=== PATIENT | female | born 1940 | race African-American/Black ===

== ENCOUNTER 2017-04-26 12:07 | Emergency (ER) | payer MEDICARE, MEDICAID ==
[~2017-04-26] VITALS: Ht 165.1 cm; Wt 54.4 kg
[2017-04-26 12:23] VITALS: BP 123/74
[2017-04-26] MEDS ORDERED: TEMAZEPAM30 MG ORAL (12:26)
[2017-04-26] MEDS ORDERED: LORAZEPAM0.5 MG ORAL (12:26)
[2017-04-26] MEDS ORDERED: ENTOCORT EC3 MG PO (12:27)
[2017-04-26] MEDS ORDERED: Meclizine 25mg tab ORAL ONE (13:00)
--- NOTE | 2017-04-26 13:04 | Emergency Room Report ---
History of Present Illness General Chief Complaint: Dizziness Source: Patient Present Illness HPI 76-year-old female history of ? Chronic glaucoma, hypertension, chronic insomnia, presenting with one week of dizziness. Patient states lightheadedness every time she walks. Also complains of mild headache. Patient does state that at times room is spinning, and when it happens it is constant for more than 2 hours. Patient states that this has never happened in the past. Denies any trauma. Denies any blurry vision but states that she has had weeks of pressure behind her eyes, saw insole coverer, told her that she needs surgery however she has been putting it off. Son states that patient has chronic insomnia, is taking benzos however not working, the patient has not been able to sleep well for the last 3 days Allergies: Coded Allergies: IBUPROFEN (Verified Allergy, Unknown, 04/26/17) MORPHINE (Verified Allergy, Unknown, 04/26/17) Uncoded Allergies: PENICILLIN (Allergy, Unknown, 04/26/17) Patient History Past Medical History: see triage record Past Surgical History: none Pertinent Family History: none Reviewed Nursing Documentation: PMH: Agreed, PSxH: Agreed Nursing Documentation-PMH Past Medical History: No History, Except For Hx Cardiac Problems: No Hx Hypertension: No Hx Pacemaker: No Hx Asthma: No Hx COPD: No Hx Diabetes: No Hx Cancer: No Hx Gastrointestinal Problems: Yes - Crohn's disease Hx Dialysis: No History Of Psychiatric Problem: Yes - Dpression, anxiety, insonmia 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 Hx Cerebrovascular Accident: No Hx Seizures: No Review of Systems All Other Systems: negative except mentioned in HPI Physical Exam Vital Signs Date Time Temp Pulse Resp B/P (MAP) Pulse Ox O2 Delivery O2 Flow Rate FiO2 04/26/17 12:13 98.4 73 14 123/64 99 Room Air Sp02 EP Interpretation: reviewed, normal General Appearance: normal inspection, well appearing, no apparent distress, alert, GCS 15, non-toxic Head: normocephalic, atraumatic Eyes: bilateral eye normal inspection, bilateral eye PERRL, bilateral eye EOMI ENT: normal ENT inspection, normal pharynx, normal voice, moist mucus membranes Neck: normal inspection, full range of motion, supple Respiratory: normal inspection, lungs clear, normal breath sounds, no respiratory distress, no retraction, no wheezing, speaking full sentences, chest symmetrical Cardiovascular #1: normal inspection, regular rate, rhythm, no edema, normal capillary refill Cardiovascular #2: 2+ radial (R), 2+ radial (L) Gastrointestinal: normal inspection, non tender, soft, non-distended, no guarding Musculoskeletal: normal inspection, back normal, normal range of motion, non- tender Neurologic: normal inspection, alert, oriented x3, responsive, hoseman III-XII nml as tested, motor strength/tone normal, sensory intact, speech normal, other - No nystagmus Psychiatric: normal inspection, judgement/insight normal, memory normal Skin: normal inspection, normal color, no rash, warm/dry, well hydrated, normal turgor Medical Decision Making Diagnostic Impression: Primary Impression: Dizziness Additional Impression: Chronic insomnia ER Course 76-year-old female with dizziness for one week DDX: Dehydration, electrolyte imbalance, infectious UTI Intracranial pathology such as bleed and stroke is not likely however we'll or form CT head as patient states that she has never had these symptoms in the past Plan: Obtain labs, ua, ucx, EKG CT head ER course: Patient has remained stable during ED stay. CT head Patient has remained asymptomatic during her ED stay, tolerating PO, denies dizziness Disposition: Patient is to be discharged to home. Patient is instructed to follow up with their primary care doctor within 5 days. She is instructed to followup with her insole coverer in 72 hours. Patient is also instructed to follow up with her primary care doctor for adjustment of her medications for her chronic insomnia Strict return precautions discussed with patient such as fever, chills, worsening/severe pain, nausea, vomiting, which may indicate severe illness. Patient verbalizes understanding and agrees with plan. Please note that this Emergency Department Report was dictated using [employer] supervisor technology software, occasionally this can lead to erroneous entry secondary to interpretation by the dictation equipment Laboratory Tests Test 04/26/17 13:02 White Blood Count 7.8 K/UL (4.8-10.8) Red Blood Count 4.86 M/UL (4.20-5.40) Hemoglobin 13.2 G/DL (12.0-16.0) Hematocrit 42.4 % (37.0-47.0) Mean Corpuscular Volume 87 FL (80-99) Mean Corpuscular Hemoglobin 27.2 PG (27.0-31.0) Mean Corpuscular Hemoglobin Concent 31.2 G/DL (32.0-36.0) L Red Cell Distribution Width 13.3 % (11.6-14.8) Platelet Count 234 K/UL (150-450) Mean Platelet Volume 7.4 FL (6.5-10.1) Neutrophils (%) (Auto) 64.2 % (45.0-75.0) Lymphocytes (%) (Auto) 29.0 % (20.0-45.0) Monocytes (%) (Auto) 4.4 % (1.0-10.0) Eosinophils (%) (Auto) 1.5 % (0.0-3.0) Basophils (%) (Auto) 1.0 % (0.0-2.0) Urine Color Pale yellow Urine Appearance Clear Urine pH 6 (4.5-8.0) Urine Specific [place] 1.010 (1.005-1.035) Urine Protein Negative (NEGATIVE) Urine Glucose (UA) Negative (NEGATIVE) Urine Ketones Negative (NEGATIVE) Urine Occult Blood 1+ (NEGATIVE) H Urine Nitrite Negative (NEGATIVE) Urine Bilirubin 1+ (NEGATIVE) H Urine Ictotest Negative Urine Urobilinogen Normal MG/DL (0.0-1.0) Urine Leukocyte Esterase 2+ (NEGATIVE) H Urine RBC 0-2 /HPF (0 - 2) Urine WBC 0-2 /HPF (0 - 2) Urine Squamous Epithelial Cells Occasional /LPF Urine Bacteria Occasional /HPF (NONE) Urine Mucus Few /LPF (NONE/OCC) H Sodium Level 141 mEQ/L (135-145) Potassium Level 4.1 mEQ/L (3.4-4.9) Chloride Level 103 mEQ/L (98-107) Carbon Dioxide Level 24 mEQ/L (20-30) Anion Gap 14 (5-15) Blood Urea Nitrogen 8 mg/dL (7-23) Creatinine 0.8 mg/dL (0.5-0.9) Estimate Glomerular Filtration Rate mL/min (>60) Glucose Level 83 mg/dL (74-106) Calcium Level 8.9 mg/dL (8.6-10.2) Total Bilirubin 0.4 mg/dL (0.0-1.2) Aspartate Amino Transferase (AST) 17 U/L (5-40) Alanine Aminotransferase (ALT) 10 U/L (3-33) Alkaline Phosphatase 66 U/L (35-104) Total Creatine Kinase 40 U/L (26-140) Creatine Kinase MB < 1.5 ng/mL (< 3.8) Creatine Kinase MB Relative Index 3.7 Troponin I < 0.30 ng/mL (<=0.30) Pro-B-Type Natriuretic Peptide 154 pg/mL (0-125) H Total Protein 7.0 g/dL (6.6-8.7) Albumin 3.7 g/dL (3.5-5.2) Globulin 3.3 g/dL Albumin/Globulin Ratio 1.1 (1.0-2.7) EKG Diagnostic Results Rate: normal, tachycardiac Rhythm: NSR ST Segments: no acute changes Rhythm Strip Diag. Results EP Interpretation: yes Rate: 69 Rhythm: NSR, no PVC's, no ectopy Chest X-Ray Diagnostic Results Chest X-Ray Diagnostic Results : Chest X-Ray Ordered: Yes # of Views/Limited/Complete: 1 View Indication: Other EP Interpretation: Yes Interpretation: no consolidation, no effusion, no pneumothorax, no acute cardiopulmonary disease Impression: No acute disease Electronically Signed by: Electronically signed by Beryl Leonardo MD CT/MRI/US Diagnostic Results CT/MRI/US Diagnostic Results : Imaging Test Ordered: CT head Last Vital Signs Date Time Temp Pulse Resp B/P (MAP) Pulse Ox O2 Delivery O2 Flow Rate FiO2 04/26/17 12:23 61 20 123/74 99 Room Air 04/26/17 12:13 98.4 Disposition: HOME, SELF-CARE Condition: Improved Beryl Leonardo M.D. Apr 26, 2017 13:04
[2017-04-26 13:36] LABS: APPEARANCE,URINE CLEAR; EOSINOPHILS % (AUTO) 1.5 % (0.0-3.0); KETONES,URINE NEGATIVE (NEGATIVE); LEUKOCYTE ESTERASE ,URINE 2+ (NEGATIVE); MEAN CORPUSCULAR HEMOGLOBIN 27.2 PG (27.0-31.0); MEAN CORPUSCULAR HGB CONC 31.2 G/DL (32.0-36.0); MEAN CORPUSCULAR VOLUME 87 FL (80-99); MEAN PLATELET VOLUME 7.4 FL (6.5-10.1); MONOCYTES % (AUTO) 4.4 % (1.0-10.0); NEUTROPHILS % (AUTO) 64.2 % (45.0-75.0); NITRITE,URINE NEGATIVE (NEGATIVE); PH,URINE 6 (4.5-8.0); PLATELET COUNT 234 K/UL (150-450); PROTEIN,URINE NEGATIVE (NEGATIVE); RED BLOOD COUNT 4.86 M/UL (4.20-5.40); RED CELL DISTRIBUTION WIDTH 13.3 % (11.6-14.8); UROBILINOGEN,URINE NORMAL MG/DL (0.0-1.0); WHITE BLOOD COUNT 7.8 K/UL (4.8-10.8)
[2017-04-26 13:46] LABS: RBC,URINE 0-2 /HPF (0 - 2); WBC,URINE 0-2 /HPF (0 - 2)
[2017-04-26 13:47] LABS: BACTERIA,URINE OCCASIONAL /HPF; ICTOTEST NEGATIVE; MUCUS,URINE FEW /LPF (NONE/OCC); SQUAMOUS EPITHELIAL CELL,UR OCCASIONAL /LPF (NONE/OCC)
[2017-04-26 13:54] LABS: ALANINE AMINOTRANSFERASE 10 U/L (3-33); ALBUMIN/GLOBULIN RATIO 1.1 (1.0-2.7); ANION GAP 14 (5-15); ASPARTATE AMINO TRANSFERASE 17 U/L (5-40); CALCIUM 8.9 mg/dL (8.6-10.2); CARBON DIOXIDE 24 mEQ/L (20-30); CHLORIDE 103 mEQ/L (98-107); CREATININE 0.8 mg/dL (0.5-0.9); HEMOLYSIS 47; POTASSIUM 4.1 mEQ/L (3.4-4.9); SODIUM 141 mEQ/L (135-145); TROPONIN I < 0.30 ng/mL (<=0.30)
[2017-04-26 14:04] LABS: CKMB < 1.5 ng/mL (< 3.8)
[2017-04-26 14:51] VITALS: BP 116/63
--- NOTE | 2017-04-27 10:52 | Diagnostic Imaging Report ---
Indication: Headache Technique: Contiguous 5 mm thick transaxial imaging of the head obtained in a Siemens Sensation [address] scanner. Soft tissue and bone windows generated. Total Dose length Product (DLP): [address] Dose Index Volume (CTDIvol): 70.38, 0.15 mGy Comparison: none Findings: There is mild prominence of the ventricles, basal cisterns, and cerebral sulci consistent with atrophy. Mild, nonspecific, white matter hypoattenuation is noted throughout the brain consistent with chronic small vessel disease. There is no midline shift, edema, acute hemorrhage, mass effect, or abnormal extra-axial fluid collections. Bones and extra osseous soft tissues are unremarkable. Impression: No acute intracranial bleed, mass effect or edema. Mild atrophy of the brain. Nonspecific white matter hypoattenuation probably due to chronic small vessel disease. The CT scanner at [facility] is accredited by the [employer] and the scans are performed using dose optimization techniques as appropriate to a performed exam including Automatic Exposure control.
--- NOTE | 2017-04-27 11:08 | Diagnostic Imaging Report ---
Indication: Dyspnea Comparison: None A single view chest radiograph was obtained. Findings: No definite infiltrate or pulmonary vascular congestion identified. The heart is normal in size. The aorta is mildly enlarged consistent with atherosclerotic vascular disease. The bones are osteopenic. Impression: No acute disease
--- NOTE | 2017-04-28 19:10 | Cardiology Report ---
APPROVED REPORT EKG Measurement Heart [id number] VT [id number] Sinus rhythm with short VT Otherwise normal ECG
== END 2017-04-26 15:18 | disposition home or self-care (01) ==
LOC: EMR 12:40
DX: R42 Dizziness and giddiness (principal); F51.04 Psychophysiologic insomnia; I10 Essential (primary) hypertension; R51 Headache; K50.90 Crohn's disease, unspecified, without complications; F32.9 Major depressive disorder, single episode, unspecified; F41.9 Anxiety disorder, unspecified; M41.9 Scoliosis, unspecified; Z88.6 Allergy status to analgesic agent; Z88.0 Allergy status to penicillin; R00.0 Tachycardia, unspecified; M85.80 Other specified disorders of bone density and structure, unspecified site
CPT/HCPCS: 36415; 70450; 71010; 80053; 81003; 82550; 82553; 83880; 84484; 85025; 93005; 99284

== ENCOUNTER 2018-05-17 03:40 | Emergency (ER) | payer MEDICARE, MEDICAID ==
[~2018-05-17] VITALS: Ht 165.1 cm; Wt 54.4 kg
[~2018-05-17 03:40] MED LIST: ENTOCORT EC3 MG PO; LORAZEPAM0.5 MG ORAL; TEMAZEPAM30 MG ORAL
[2018-05-17 04:00] VITALS: BP 109/69
[2018-05-17] MEDS ORDERED: LEVAQUIN500 MG ORAL (04:38)
--- NOTE | 2018-05-17 04:38 | Emergency Room Report ---
History of Present Illness General Chief Complaint: Abdominal Pain Present Illness HPI This patient c/o LLQ sharp moderate-severe abdominal pain starting last night ~ 8 hours. No similar history. Nausea. No vomiting, no fever, no diarrhea. Also c/ o dysuria. Pt. has long-standing hx. of Crohn's disease but says this feels very different. Hospitalized for a week [facility] one year ago and also about two years ago. Currently on day four of a five day QD antibiotic for ??UTI? Does not know name. Allergies: Coded Allergies: IBUPROFEN (Verified Allergy, Unknown, 04/26/17) MORPHINE (Verified Allergy, Unknown, 04/26/17) Uncoded Allergies: PENICILLIN (Allergy, Unknown, 04/26/17) Patient History Now: No Nursing Documentation-PMH Hx Cardiac Problems: No Hx Hypertension: No Hx Pacemaker: No Hx Asthma: No Hx COPD: No Hx Diabetes: No Hx Cancer: No Hx Gastrointestinal Problems: Yes - Crohn's disease Hx Dialysis: No 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 Hx Cerebrovascular Accident: No Hx Seizures: No Review of Systems Constitutional: Reports: no symptoms, see HPI Eye: Reports: no symptoms ENT: Reports: no symptoms Respiratory: Reports: no symptoms Cardiovascular: Reports: no symptoms Gastrointestinal: Reports: abdominal pain, nausea Genitourinary: Reports: no symptoms Musculoskeletal: Reports: no symptoms Skin: Reports: no symptoms Psychiatric: Reports: no symptoms Neurological: Reports: no symptoms Endocrine: Reports: no symptoms Hematologic/Lymphatic: Reports: no symptoms Allergic: Reports: no symptoms All Other Systems: negative except mentioned in HPI Physical Exam Vital Signs Date Time Temp Pulse Resp B/P (MAP) Pulse Ox O2 Delivery O2 Flow Rate FiO2 05/17/18 03:49 98.3 91 18 104/69 95 98.2 Sp02 EP Interpretation: reviewed, normal General Appearance: normal inspection, well appearing, no apparent distress, alert, GCS 15, non-toxic Head: normocephalic, atraumatic Eyes: bilateral eye normal inspection, bilateral eye PERRL, bilateral eye EOMI ENT: normal ENT inspection, hearing grossly normal, normal pharynx, no angioedema, normal voice, moist mucus membranes Neck: normal inspection, full range of motion, supple, no meningismus, no bony tend Respiratory: normal inspection, lungs clear, normal breath sounds, no rhonchi, no respiratory distress, no retraction, no accessory muscle use, no wheezing Cardiovascular #1: normal inspection, regular rate, rhythm, no edema Gastrointestinal: normal inspection, normal bowel sounds, soft, no mass, non- distended, other - +LLQ moderate tenderness; no surgical signs Musculoskeletal: gait/station normal, normal range of motion Neurologic: normal inspection, alert, oriented x3, responsive, motor strength/ tone normal Psychiatric: normal inspection, judgement/insight normal, memory normal Suicide Risk Assessment: Suicidal Ideation: No Had intent to initiate attempt: No Pt's plan for suicide attempt: No Has means to complete attempt: No Skin: normal inspection, normal color, no rash, warm/dry Medical Decision Making Diagnostic Impression: Primary Impression: Diverticulitis ER Course small bowel obstruction, pancreatitis, urinary tract infection, diverticulitis, renal colic, AAA, mesenteric ischemia. I suspect diverticulitis. Pt. with no old EMR here. Subjectively feels distinct than Crohn's exacerbation and on exam classic LLQ moderate tenderness. Also dysuria/mild. Will check blood, urine, CT. Anticipate finding mild diverticulitis and probable d/c with oral antibiotics. Will s/o next MD. Last Vital Signs Date Time Temp Pulse Resp B/P (MAP) Pulse Ox O2 Delivery O2 Flow Rate FiO2 05/17/18 03:49 98.3 91 18 104/69 95 98.2 Disposition: HOME, SELF-CARE Condition: Stable Scripts Levofloxacin* (LEVAQUIN*) 500 Mg Tablet 500 MG ORAL DAILY for 7 Days, TAB Prov: Yimi Adkins M.D. 05/17/18 Patient Instructions: Diverticulitis, [id number] Yimi Adkins M.D. May 17, 2018 04:38
[2018-05-17 05:30] VITALS: BP 105/64
[2018-05-17] MEDS ORDERED: Isovue-300 100ml vial INJ PRN (05:30)
[2018-05-17] MEDS ORDERED: Morphine Sulfate 4mg/ml Inj (IV USE ONLY) IVP ONE (05:30)
[2018-05-17 06:08] LABS: BASOPHILS % (AUTO) 0.6 % (0.0-2.0); EOSINOPHILS % (AUTO) 1.7 % (0.0-3.0); HEMOGLOBIN 13.4 G/DL (12.0-16.0); LYMPHOCYTES % (AUTO) 15.6 % (20.0-45.0); MEAN CORPUSCULAR VOLUME 83 FL (80-99); MONOCYTES % (AUTO) 4.1 % (1.0-10.0); PLATELET COUNT 252 K/UL (150-450); RED BLOOD COUNT 5.04 M/UL (4.20-5.40); RED CELL DISTRIBUTION WIDTH 12.3 % (11.6-14.8); WHITE BLOOD COUNT 10.3 K/UL (4.8-10.8)
[2018-05-17 06:10] LABS: APPEARANCE,URINE CLEAR; BILIRUBIN, URINE NEGATIVE (NEGATIVE); COLOR,URINE PALE YELLOW; GLUCOSE, URINE (UA) NEGATIVE (NEGATIVE); KETONES,URINE NEGATIVE (NEGATIVE); LEUKOCYTE ESTERASE ,URINE 2+ (NEGATIVE); NITRITE,URINE NEGATIVE (NEGATIVE); PH,URINE 6 (4.5-8.0); PROTEIN,URINE NEGATIVE (NEGATIVE); UROBILINOGEN,URINE NORMAL MG/DL (0.0-1.0)
[2018-05-17 06:11] LABS: ANION GAP 7 mmol/L (5-15); BLOOD UREA NITROGEN 9 mg/dL (7-18); CALCIUM 9.2 MG/DL (8.5-10.1); CARBON DIOXIDE 27 MMOL/L (21-32); CHLORIDE 106 MMOL/L (98-107); CREATININE 0.8 MG/DL (0.55-1.30); POTASSIUM 3.9 MMOL/L (3.5-5.1); SODIUM 140 MMOL/L (136-145)
[2018-05-17 06:16] LABS: ALANINE AMINOTRANSFERASE 15 U/L (12-78); ALBUMIN 2.9 G/DL (3.4-5.0); ALBUMIN/GLOBULIN RATIO 0.6 (1.0-2.7); ALKALINE PHOSPHATASE 88 U/L (46-116); ASPARTATE AMINO TRANSFERASE 17 U/L (15-37); BILIRUBIN,TOTAL 0.3 MG/DL (0.2-1.0)
--- NOTE | 2018-05-17 07:42 | Diagnostic Imaging Report ---
EXAM: CT Abdomen and Pelvis With Intravenous Contrast CLINICAL HISTORY: PAIN TECHNIQUE: Axial computed tomography images of the abdomen and pelvis with intravenous contrast. CTDI is 26.2 mGy and DLP is 1217 mGy-cm. One or more of the following dose reduction techniques were used: automated exposure control, adjustment of the mA and/or kV according to patient size, use of iterative reconstruction technique. Coronal and sagittal reformatted images were created and reviewed. COMPARISON: No relevant prior studies available. FINDINGS: Lung bases: Bibasilar atelectasis. ABDOMEN: Liver: Some intrahepatic biliary ductal dilatation is also seen. Small hepatic hypodensities measuring up to 8-mm, too small to characterize but may represent cysts. Possible focal fatty infiltration seen on the left Gallbladder and bile ducts: Cholecystectomy. Common bile duct measures up to 11.7 mm, likely due to age and postcholecystectomy. Pancreas: Unremarkable. No mass. No ductal dilation. Spleen: Unremarkable. No splenomegaly. Adrenals: Unremarkable. No mass. Kidneys and ureters: Right renal 6.6 cm cyst. Left extrarenal pelvis. Small left renal hypodensities, too small to characterize. No hydronephrosis. Stomach and bowel: Sigmoid diverticulosis with focal asymmetric thickening of the sigmoid colon, question underlying mass. Diverticulitis may also be considered. No obstruction. PELVIS: Appendix: No findings to suggest acute appendicitis. Bladder: Bladder wall thickening, correlate for cystitis versus underdistention. Reproductive: Unremarkable as visualized. ABDOMEN and PELVIS: Intraperitoneal space: No abnormal fluid collection or extraluminal air seen within the peritoneal space. Bones/joints: Degenerative changes of the spine with a dextroconvex scoliosis. Degenerative changes of the hips. No acute fracture. No dislocation. Chronic height loss of L1 with evidence of previous vertebroplasty. Soft tissues: Unremarkable. Vasculature: Unremarkable. No abdominal aortic aneurysm. Lymph nodes: Unremarkable. No enlarged lymph nodes. IMPRESSION: 1. Sigmoid diverticulosis with focal asymmetric thickening of the sigmoid colon, question underlying mass. Diverticulitis may also be considered. 2. No abnormal fluid collection or extraluminal air seen within the peritoneal space. 3. Cholecystectomy. Common bile duct measures up to 11.7 mm, likely due to age and postcholecystectomy. 4. Some intrahepatic biliary ductal dilatation is also seen. 5. Right renal 6.6 cm cyst. 6. Bladder wall thickening, correlate for cystitis versus underdistention. 7. Chronic height loss of L1 with evidence of previous vertebroplasty.
[2018-05-17] MEDS ORDERED: PHENAZOPYRIDIN200 MG ORAL (07:59)
[2018-05-17] MEDS ORDERED: Phenazopyridine 200mg tab ORAL ONE (08:00)
[2018-05-17] MEDS ORDERED: Levofloxacin 500mg tab ORAL ONE (08:00)
[2018-05-17 08:36] VITALS: BP 141/63
== END 2018-05-17 09:06 | disposition home or self-care (01) ==
LOC: EMR 05:00
DX: K57.90 Diverticulosis of intestine, part unspecified, without perforation or abscess without bleeding (principal); N30.90 Cystitis, unspecified without hematuria; R10.32 Left lower quadrant pain; K50.90 Crohn's disease, unspecified, without complications; Z88.5 Allergy status to narcotic agent
CPT/HCPCS: 36415; 74177; 80053; 81001; 83690; 85025; 96361; 96374; 96375; 99284; Q9967

== ENCOUNTER 2018-11-17 12:22 | Emergency (ER) | payer MEDICARE, MEDICAID ==
[~2018-11-17] VITALS: Ht 165.1 cm; Wt 63.5 kg
[~2018-11-17 12:22] MED LIST changes: +LEVAQUIN500 MG ORAL; +PHENAZOPYRIDIN200 MG ORAL
[2018-11-17 13:08] VITALS: BP 116/65
--- NOTE | 2018-11-17 13:10 | NUR ---
ED Nurse Note:pt. came with c/o right hip pain, x-ray done, pain meds given
[2018-11-17] MEDS ORDERED: traMADol 50mg tab ORAL ONE (14:45)
--- NOTE | 2018-11-17 15:11 | NUR ---
ED Nurse Note: RN administered Toradol IM injection to left vastus lateralis. Patient tolerated the procedure without difficutly.
--- NOTE | 2018-11-17 16:10 | Diagnostic Imaging Report ---
Indications: Low back pain Technique: Spiral acquisitions obtained through the lumbar spine. Multiplanar reconstructions were generated. No IV contrast utilized. Total dose length product 300 mGycm. CTDIvol(s) 11.31 mGy. Dose reduction achieved using automated exposure control Comparison: No comparison lumbar spine studies. Reference is made to abdomen pelvis CT dated 05/17/2018 Findings: There is an anterior wedge compression fracture deformity of the L1 vertebral body, resulting in about 50% height loss anteriorly. There is considerable irregularity of the anterior wall and superior endplate. There is evidence of prior vertebral augmentation procedure. The appearance is similar to the previous abdomen pelvis CT. There is lumbar scoliotic deformity which appears similar to the previous study. There is lateral subluxation of L3 on L4. The remaining vertebral body heights are preserved other than changes resulting from degenerative remodeling. No acute fractures. Slight posterior retropulsion of the posterior wall of the compressed L1 results in borderline spinal stenosis at T12-L1. No significant disc bulge or protrusion. No significant neural foraminal stenosis. No significant disc space narrowing At L1-2, there is minimal degenerative disc narrowing. No significant disc bulge or protrusion. There is mild narrowing of the left neural foramen, predominantly due to facet arthrosis as well as due to being on the concave side of the scoliotic curvature At L2-3, there is broad-based posterior disc protrusion. This results in borderline narrowing of the spinal canal. There is moderate narrowing of the left neural foramen, due to facet arthrosis, the disc bulge, as well as location on the concave side of the scoliotic deformity. There is left-sided degenerative disc space narrowing. The right neural foramen is preserved At L3-4, there is degenerative disc narrowing. There is circumferential annular bulge which results in moderate narrowing of the spinal canal. There is moderate to severe left and moderate right neural foraminal stenosis due to the bulging disc, scoliotic curvature, and facet arthrosis. At L4-5, there is moderate degenerative disc narrowing. Circumferential annular bulge and ligamentum flavum hypertrophy result in mild to moderate narrowing of the spinal canal. There is at least moderate narrowing of the right neural foramen, minimal narrowing of the left neural foramen. There is degenerative facet arthrosis At L5-S1, there is degenerative disc narrowing. There is broad-based central posterior disc protrusion which results in only borderline narrowing the spinal canal at this level. There is mild to moderate bilateral neural foraminal stenosis, due to the bulging disc as well as to facet arthrosis. The included extraspinal soft tissues are unremarkable.. Impression: No acute bony trauma Old L1 vertebral body compression fracture deformity, with evidence of prior vertebral augmentation procedure Extensive multilevel degenerative change, as detailed on a level by level basis above Scoliotic deformity The CT scanner at [facility] is accredited by the [employer] and the scans are performed using protocols designed to limit radiation exposure to as low as reasonably achievable to attain images of sufficient resolution adequate for diagnostic evaluation.
--- NOTE | 2018-11-17 16:56 | Diagnostic Imaging Report ---
Indication: Lumbar spine pain Technique: 3 views of the lumbar spine Comparison: None Findings: There is lumbar scoliotic deformity. There is evidence of prior L1 vertebral augmentation procedure. There is evidence of old L1 compression fracture deformity which is evident on a prior abdomen pelvis CT scan of May 2018. There is multilevel disc degeneration. Bones are osteoporotic. No definite acute fractures. There are cholecystectomy clips Impression: Old L1 vertebral body compression fracture. Evidence of prior vertebral augmentation procedure for such Scoliotic deformity Degenerative changes, as described
--- NOTE | 2018-11-17 17:03 | Emergency Room Report ---
History of Present Illness General Chief Complaint: Pain Source: Patient Present Illness HPI 78-year-old female presents to the emergency department complaining of 8 out of 10 in severity pain that has been progressive over the course of one month to the right side of her low back and hip. Patient denies trauma or fall. Denies history of arthritis she reports her pain is exacerbated upon walking and she has some mild relief when she is just standing still. Denies night sweats, fevers, chills, recent spinal procedure history of neoplastic disease.Denies numbness tingling or loss of sensation or gross motor movements of the extremities, incontinence of bowel or bladder. Denies CP, Palpitations, LOC, AMS , dizziness, Changes in Vision, weakness or a sudden severe headache. Allergies: Coded Allergies: IBUPROFEN (Verified Allergy, Unknown, 04/26/17) MORPHINE (Verified Allergy, Unknown, 04/26/17) PENICILLINS (Unverified Allergy, Unknown, 11/17/18) Uncoded Allergies: PENICILLIN (Allergy, Unknown, 04/26/17) Patient History Past Medical History: see triage record Past Surgical History: none Pertinent Family History: none Now: No Reviewed Nursing Documentation: PMH: Agreed; PSxH: Agreed Nursing Documentation-PMH Past Medical History: No History, Except For Hx Cardiac Problems: No Hx Hypertension: No Hx Pacemaker: No Hx Asthma: No Hx COPD: No Hx Diabetes: No Hx Cancer: No Hx Gastrointestinal Problems: Yes - Crohn's disease Hx Dialysis: No 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 Hx Cerebrovascular Accident: No Hx Seizures: No Review of Systems All Other Systems: negative except mentioned in HPI Physical Exam Vital Signs Date Time Temp Pulse Resp B/P (MAP) Pulse Ox O2 Delivery O2 Flow Rate FiO2 11/17/18 12:29 98.4 72 20 116/65 97 Room Air Sp02 EP Interpretation: reviewed, normal General Appearance: no apparent distress, alert, GCS 15, non-toxic Head: normocephalic, atraumatic Eyes: bilateral eye normal inspection, bilateral eye PERRL ENT: hearing grossly normal, normal voice Neck: full range of motion Respiratory: lungs clear, normal breath sounds, speaking full sentences Cardiovascular #1: regular rate, rhythm Cardiovascular #2: 2+ dorsalis pedis (R), 2+ dorsalis pedis (L) Gastrointestinal: non tender, soft Genitourinary: normal inspection, no CVA tenderness Musculoskeletal: back normal, gait/station normal, normal range of motion, other - equal leg length. , tender - TTP to the midline and right Paraspinal musculature of the lumbar spine as well as tenderness to the lateral aspect of the right hip, limited range of motion secondary to pain, ambulatory and able to bear weight, no obvious deformities or step-offs noted. Neurologic: alert, oriented x3, responsive, motor strength/tone normal, sensory intact, normal gait, speech normal, grossly normal Psychiatric: judgement/insight normal Skin: normal color, no rash, warm/dry, well hydrated Medical Decision Making PA Attestation Dr. cardenas is my supervising Physician whom patient management has been discussed with. Diagnostic Impression: Primary Impression: Back pain Qualified Codes: M54.41 - Lumbago with sciatica, right side Additional Impression: Degenerative arthritis Qualified Codes: M15.0 - Primary generalized (osteo)arthritis ER Course 78-year-old female presents to the emergency department complaining of 8 out of 10 in severity pain that has been progressive over the course of one month to the right side of her low back and hip. Patient denies trauma or fall. Denies history of arthritis she reports her pain is exacerbated upon walking and she has some mild relief when she is just standing still. Denies night sweats, fevers, chills, recent spinal procedure history of neoplastic disease.Denies numbness tingling or loss of sensation or gross motor movements of the extremities, incontinence of bowel or bladder. Denies CP, Palpitations, LOC, AMS , dizziness, Changes in Vision, weakness or a sudden severe headache. Ddx considered but are not limited to Fracture, dislocation, contusion, Sprain/ Strain/Spasm, herniated disk, degenerative changes, epidural abscess, or neoplastic mets. Vital signs: are WNL, pt. is afebrile H&PE are most consistent with musculoskeletal injury will perform imaging to r/ o fractures/dislocations. - no saddle anesthesia, or neurological deficits, no urinary retention or incontinence. ORDERS: - X-ray L-Spine and Right Hip - negative for fx, Dislocation, or significant soft tissue injury, per preliminary read in ED, and signed by DOMINGUEZ Mathews , my supervising physician has reviewed, and agrees with my interpretation. -CT L-Spine and Pelvis No Contrast: no acute fractures, evidence of old compression fx, and significant degenerative changes. ED INTERVENTIONS: - Tylenol PO --pt. initially declined strong pain medications -Lidoderm TP --Tramadol PO DISCHARGE: At this time pt. is stable for d/c to home. Will provide printed patient care instructions, and any necessary prescriptions. Care plan and follow up instructions have been discussed with the patient prior to discharge. Other X-Ray Diagnostic Results Other X-Ray Diagnostic Results #1: X-Ray ordered: X-ray L-Spine # of Views/Limited Vs Complete: 3 View Indication: Pain EP Interpretation: Yes PA Xray: Interpretation reviewed, by supervising MD, and agrees with findings. Interpretation: no dislocation, no soft tissue swelling, other - Moderate degenerative changes and malalignment of the L-Spine will do CT Impression: Other Electronically Signed by: Pooja Mathews PA-C Other X-Ray Diagnostic Results #2: X-Ray ordered: X-ray Right Hip # of Views/Limited Vs Complete: 2 View Indication: Pain EP Interpretation: Yes PA Xray: Interpretation reviewed, by supervising MD, and agrees with findings. Interpretation: no dislocation, no soft tissue swelling, no fractures Impression: No acute disease Electronically Signed by: Pooja Mathews PA-C CT/MRI/US Diagnostic Results CT/MRI/US Diagnostic Results : Imaging Test Ordered: -CT L-Spine and Pelvis No Contrast Impression " No acute bony trauma, old L1 vertebral body compression fracture with evidence of prior vertebral augmentation procedure, extensive degenerative changes and scoliotic deformity." Per official radiology report- Please see report for specific details. Last Vital Signs Date Time Temp Pulse Resp B/P (MAP) Pulse Ox O2 Delivery O2 Flow Rate FiO2 11/17/18 16:04 98.4 11/17/18 13:08 80 20 116/65 97 Room Air Status: improved Disposition: HOME, SELF-CARE Condition: Stable Scripts Guaifenesin (Guaifenesin) 1,200 Mg Tab.er.12h 1200 MG PO Q12HR, #20 TAB Prov: Pooja Mathews 11/17/18 Tramadol Hcl* (ULTRAM*) 50 Mg Tablet 50 MG ORAL Q6H PRN for For Pain, #20 TAB 0 Refills Prov: Pooja Mathews 11/17/18 Referrals: NOT CHOSEN IPA/,REFERRING (PCP) Patient Instructions: Back Pain, Adult, [id number] Additional Instructions: Take medications as directed. Follow up with an CMS EXPERT in 3-5 days, even if your symptoms have resolved. If symptoms persist MRI may be required at the discretion of your PCP or Ortho Specialist. --Please review list of primary care clinics, if you do not already have a primary care provider who can give you an Orthopedic Referral. Return sooner to ED if new symptoms occur, or current symptoms become worse. Do not drink alcohol, drive, or operate heavy machinery while taking [place] as this may cause drowsiness. - Please note that this Emergency Department Report was dictated using [employer] software, occasionally this can lead to erroneous entry secondary to interpretation by the dictation equipment. Pooja Mathews Nov 17, 2018 17:03
[2018-11-17] MEDS ORDERED: TRAMADOL HCL50 MG ORAL (17:04)
--- NOTE | 2018-11-17 17:07 | Diagnostic Imaging Report ---
Indication: Left hip pain Technique: 2 views of the left hip Comparison: none Findings: There is mild degenerative change of the left hip. No acute fractures. No dislocations. The joint spaces are preserved Impression: No acute process
[2018-11-17] MEDS ORDERED: GUAIFENESIN1200 MG PO (17:34)
[2018-11-17 18:22] VITALS: BP 116/65
--- NOTE | 2018-11-17 18:23 | NUR ---
ER DISCHARGE NOTE: Patient is cleared to be discharged per ERMD, pt is aox4, on room air, with stable vital signs. pt was given dc and prescription instructions, pt was able to verbalize understanding, pt is able to ambulate with cane and family member. pt took all belongings.
== END 2018-11-17 18:00 | disposition home or self-care (01) ==
LOC: EMR 14:39
DX: M54.41 Lumbago with sciatica, right side (principal); M15.0 Primary generalized (osteo)arthritis; Z88.6 Allergy status to analgesic agent; Z88.0 Allergy status to penicillin; M41.9 Scoliosis, unspecified
CPT/HCPCS: 72020; 72131; 73502; 99284

== ENCOUNTER 2019-08-06 14:23 | Emergency (ER) | payer MEDICARE, MEDICAID ==
[~2019-08-06] VITALS: Ht 162.6 cm; Wt 54.4 kg
[~2019-08-06 14:23] MED LIST changes: +GUAIFENESIN1200 MG PO; +TRAMADOL HCL50 MG ORAL
[2019-08-06 14:45] VITALS: BP 132/63
[2019-08-06] MEDS ORDERED: ACETAMINOPHEN500 M5 ORAL (14:56)
[2019-08-06] MEDS ORDERED: ROBAXIN-750750 MG PO (14:56)
[2019-08-06] MEDS ORDERED: LIDODERM700 M1 TOPIC (14:56)
--- NOTE | 2019-08-06 14:57 | Emergency Room Report ---
History of Present Illness General Chief Complaint: Pain Source: Patient Present Illness HPI 79-year-old female history of chronic right lower back pain, presents with 2 months of chronic right lower back pain stating she is coming to the ED for an MRI she denies any chest pain shortness of breath no new changes in her chronic pain, she has right achy back pain aggravated with movement alleviated with rest severity is moderate, no perianal numbness no bowel bladder retention/ incontinence. She has no history of IV drug use. No fevers no chills. Son is at bedside he states she thought she could get an MRI in the ED even though there is no acute changes Additionally patient had a pain management doctor who she did not see and was referred to her PCP Allergies: Coded Allergies: IBUPROFEN (Verified Allergy, Unknown, 04/26/17) MORPHINE (Verified Allergy, Unknown, 04/26/17) PENICILLINS (Unverified Allergy, Unknown, 11/17/18) Uncoded Allergies: PENICILLIN (Allergy, Unknown, 04/26/17) Patient History Past Medical History: see triage record Now: No Reviewed Nursing Documentation: PMH: Agreed; PSxH: Agreed Nursing Documentation-PMH Past Medical History: No Stated History Hx Cardiac Problems: No Hx Hypertension: No Hx Pacemaker: No Hx Asthma: No Hx COPD: No Hx Diabetes: No Hx Cancer: No Hx Gastrointestinal Problems: Yes - Crohn's disease Hx Dialysis: No 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 Hx Cerebrovascular Accident: No Hx Seizures: No Review of Systems All Other Systems: negative except mentioned in HPI Physical Exam Vital Signs Date Time Temp Pulse Resp B/P (MAP) Pulse Ox O2 Delivery O2 Flow Rate FiO2 08/06/19 14:35 98.1 81 12 122/79 (93) 92 Room Air Sp02 EP Interpretation: reviewed, normal General Appearance: well appearing, no apparent distress, alert Head: normocephalic, atraumatic Eyes: bilateral eye PERRL, bilateral eye EOMI ENT: uvula midline, moist mucus membranes Neck: supple, thyroid normal, supple/symm/no masses Respiratory: lungs clear, no respiratory distress, no retraction, no accessory muscle use Cardiovascular #1: normal peripheral pulses, regular rate, rhythm, no edema, no gallop, no murmur Gastrointestinal: non tender, soft, no guarding, no rebound Musculoskeletal: normal inspection, other - Back: No midline midline tenderness no step-offs, right lower backup sawyer to palpation along the muscle Neurologic: alert, oriented x3 Psychiatric: mood/affect normal Skin: no rash, warm/dry Medical Decision Making Diagnostic Impression: Primary Impression: Chronic lower back pain Qualified Codes: M54.5 - Low back pain; G89.29 - Other chronic pain ER Course 79-year-old female presents with chronic right lower back pain The patient presents with back pain. Clinically this patient can be ruled out for serious pathology given there is a completely normal neurological exam, no history of IV drug use, and no history of bowel or bladder incontinence, no perianal numbness/tingling, no constipation or urinary retention. Once the patient's pain was adequately controlled, the patient was able to ambulate and be discharged in stable condition with anticipatory guidance provided. Counseled patient to follow-up with PCP and to also obtain an MRI as an outpatient if necessary no acute emergent pathology at this time Last Vital Signs Date Time Temp Pulse Resp B/P (MAP) Pulse Ox O2 Delivery O2 Flow Rate FiO2 08/06/19 14:45 98.1 75 12 132/63 92 Room Air Disposition: HOME, SELF-CARE Condition: Stable Scripts Walker (ULTRA-LIGHT ROLLATOR) 1 Each Each EACH MC, #1 Prov: Lionel Armenta MD 08/06/19 Naproxen* (NAPROSYN*) 250 Mg Tablet 250 MG ORAL TID PRN for For Pain, #20 TAB 0 Refills Prov: Lionel Armenta MD 08/06/19 Famotidine* (Pepcid 20mg tablet*) 20 Mg Tablet 20 MG ORAL TWICE A DAY, #60 TAB 0 Refills Prov: Lionel Armenta MD 08/06/19 Acetaminophen (Acetaminophen) 500 Mg Tablet 1000 MG ORAL Q8HR for PAIN, #60 TAB Prov: Lionel Armenta MD 08/06/19 Lidocaine Patch* (Lidoderm Patch*) 1 Each Adh..patch 1 PATCH TOPIC DAILY PRN for For Pain, #7 PATCH 0 Refills Patch(es) may remain in place for up to 12 hours in any 24-hour period. Prov: Lionel Armenta MD 08/06/19 Methocarbamol* (ROBAXIN-750*) 750 Mg Tablet 750 MG PO QID PRN for For Pain, #28 TAB 0 Refills Prov: Lionel Armenta MD 08/06/19 Referrals: [facility] Sourav Shaikh. [facility] Patient Instructions: Back Pain, Adult, [id number], Chronic Back Pain Additional Instructions: The patient was provided with discharge instructions, notified to follow-up with a primary care doctor and or specialist in the next 24-48 hours, and to return to the ED if they have worsening of their symptoms. Please note that this report is being documented using [employer] technology. This can lead to erroneous entry secondary to incorrect interpretation by the dictating instrument. PLEASE SPEAK TO PRIMARY CARE DOCTOR IN REGARDS TO GETTING A REFERRAL TO PAIN MANAGEMENT AND ALSO TO GET AN OUTPATIENT MRI. Lionel Armenta MD Aug 06, 2019 14:57
[2019-08-06] MEDS ORDERED: Acetaminophen 500mg (ES) tab ORAL ONE (15:00)
[2019-08-06] MEDS ORDERED: Ketorolac 30mg Inj IM ONE (15:00)
[2019-08-06] MEDS ORDERED: FAMOTIDINE20 MG ORAL (15:29)
[2019-08-06] MEDS ORDERED: NAPROXEN250 MG ORAL (15:29)
[2019-08-06] MEDS ORDERED: ULTRA-LIGHT RO1 EACH MC (15:30)
[2019-08-06 15:40] VITALS: BP 132/63
== END 2019-08-06 15:40 | disposition home or self-care (01) ==
LOC: EMR 15:30
DX: M54.5 Low back pain (principal); G89.29 Other chronic pain; K50.90 Crohn's disease, unspecified, without complications; Z88.6 Allergy status to analgesic agent; Z88.0 Allergy status to penicillin; Z88.5 Allergy status to narcotic agent
CPT/HCPCS: 96372; 99283; J1885